=== PATIENT | male | born 1955 | race Caucasian/White ===

== ENCOUNTER → 2018-09-19 | Emergency (ER) | payer OTHER ==
[~2018-09-19] MED LIST: Aspirin 81 mg CHEW TAB* 81 MG TAB.CHEW ONE; Aspirin 81 mg CHEW TAB* 81 MG TAB.CHEW PO ONE
[2018-09-19 15:03] LABS: ABS Basophils 0.1 10^3/ul (0-0.2); ABS Eosinophils 0.4 10^3/ul (0-0.6); ABS Lymphocytes 2.5 10^3/ul (1.0-4.8); ABS Monocytes 0.9 10^3/ul (0-0.8); ABS Neutrophils 4.8 10^3/ul (1.5-7.7); ABS Nucleated RBC 0 10^3/ul; Eosinophil % 4.6 % (0-6); Hematocrit 43 % (42-52); Hemoglobin 14.7 g/dl (14.0-18.0); Lymphocyte % 28.7 % (25-47); Mean Corpuscular HGB Conc 35 g/dl (31-36); Mean Corpuscular Hemoglobin 31 pg (27-31); Mean Corpuscular Volume 88 fL (80-94); Mean Platelet Volume 7.8 um3 (7.4-10.4); Nucleated Red Blood Cells % 0.1; Platelet Count 278 10^3/ul (150-450); Red Blood Count 4.83 10^6/ul (4.00-5.40); Red Cell Distribution Width 13 % (10.5-15); White Blood Count 8.6 10^3/ul (3.5-10.8)
[2018-09-19 15:11] LABS: INR 0.91 (0.77-1.02)
[2018-09-19 15:26] LABS: EGFR Non-African American 84.1 (>60)
--- NOTE | 2018-09-19 15:46 | RAD ---
HISTORY: chest pain COMPARISONS: December 14, 2012 VIEWS: 4: Frontal dual-energy and lateral views of the chest. FINDINGS: CARDIOMEDIASTINAL SILHOUETTE: The cardiomediastinal silhouette is normal. LONNY: The lonny are normal. PLEURA: The costophrenic angles are sharp. No pleural abnormalities are noted. LUNG PARENCHYMA: There is hyperinflation with flattening of the diaphragm and expansion of the AP diameter of the chest. ABDOMEN: The upper abdomen is clear. There is no subphrenic gas. BONES AND SOFT TISSUES: Degenerative changes are noted along the spine. The patient is status post anterior cervical fusion. OTHER: None. IMPRESSION: NO ACTIVE CARDIOPULMONARY DISEASE.
--- NOTE | 2018-09-19 18:11 | ED ---
HPI Chest Pain - HPI Summary HPI Summary: This patient is a 63 year old M presenting to [facility] with a chief complaint of intermittent tight 3/10 CP radiating to throat since 3 months ago. He endorses SOB. He was referred by Dr. Alanis, from his office, where patient was experiencing the chest pain in the office, and where his D-dimer, and troponin were both negative by office labs at approximately 1315pm, and EKG was sinus rhythm and not a STEMI. Pt drove himself to the ED He notes that sx are alleviated with activity, and worse when lying flat. Pt is normally very physically active and fit. PMHx AFib with ablation, HLD (statin intolerant), HTN, GERD, hiatal hernia. He had a normal JOCE 2012, a pulmonary vein catheter ablation for afib 02/2013. Pt states that coughing alleviates his Afib sx. Pt denies Rx blood thinners. Rx Toprol, Lisinopril. Pt took 81 ASA last PM, none since. - History of Current Complaint Chief Complaint: EDChestPainROMI Time Seen by Provider: 09/19/18 14:49 Hx Obtained From: Patient, Other: - Dr. Alanis Onset/Duration: Started Weeks Ago, Still Present Timing: Intermittent Initial Severity: Mild Current Severity: Mild Pain Intensity: 3 Pain Scale Used: 0-10 Numeric Chest Pain Location: Diffuse Chest Pain Radiates: Yes Chest Pain Radiates To:: Neck Character: Tightness Aggravating Factor(s): Rest - with recumbent position Alleviating Factor(s): Other: - exertion Associated Signs and Symptoms: Positive: Chest Pain, Shortness of Breath - Allergy/Home Medications Allergies/Adverse Reactions: Allergies Allergy/AdvReac Type Severity Reaction Status Date / Time [id number] Reductase Allergy Fatigue Verified 09/19/18 14:50 Inhibitor PMH/Surg Hx/FS Hx/Imm Hx Previously Healthy: No Cardiovascular History: Reports: Hx Atrial Fibrillation - s/p ablation, Hx Hypercholesterolemia, Hx Hypertension Respiratory History: Denies: Hx Asthma GI History: Reports: Hx Gastroesophageal Reflux Disease, Hx Hiatal Hernia Musculoskeletal History: Reports: Hx Back Problems - c6-c7 disc herniation, replacement Sensory History: Reports: Hx Contacts or Glasses Opthamlomology History: Reports: Hx Contacts or Glasses Neurological History: Reports: 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 Jules ( 2004). 2006 [facility]- (left) inguinal hernia. 2010 [facility]- (right) ring finger trigger release Hx Anesthesia Reactions: No Infectious Disease History: No Infectious Disease History: Denies: Traveled Outside the [place] in Last 30 Days - Family History Known Family History: Negative: Blood Disorder - Social History Alcohol Use: Daily Hx Substance Use: No Substance Use Type: Reports: None Smoking Status (MU): Never Smoked Tobacco Have You Smoked in the Last Year: No Review of Systems Negative: Fever Positive: Chest Pain Positive: Shortness Of Breath Gastrointestinal: Negative Positive: no symptoms reported Positive: Arthralgia - neck/throat pain radiation from chest Neurological: Negative Psychological: Normal All Other Systems Reviewed And Are Negative: Yes Physical Exam - Summary Physical Exam Summary: Appearance: Well-appearing, mild pain distress, well-nourished Skin: Warm, color reflects adequate perfusion, dry Head: Normal Head/Face inspection, atraumatic Eyes: Conjunctiva clear ENT: Normal inspection Neck: Supple, no nodes, no JVD Respiratory: Lungs clear, normal breath sounds, no respiratory distress Cardio: RRR, No murmur, pulses normal, brisk capillary refill Abdomen: Soft, non-tender Bowel sounds: Present Musculoskeletal: Strength Intact/ROM intact, no calf tenderness, no edema. Psychological: Normal Neuro: Alert, muscle tone normal, no focal deficit Triage Information Reviewed: Yes Vital Signs On Initial Exam: Initial Vitals Temp Pulse Resp BP Pulse Ox 98.7 F 83 16 151/95 94 09/19/18 14:43 09/19/18 14:43 09/19/18 14:43 09/19/18 14:43 09/19/18 14:43 Vital Signs Reviewed: Yes Diagnostics - Vital Signs Vital Signs Temp Pulse Resp BP Pulse Ox 09/19/18 14:43 98.7 F 83 16 151/95 94 - Laboratory Lab Results: Lab Results 09/19/18 09/19/18 09/19/18 Range/Units 14:53 14:53 14:53 WBC 8.6 (3.5-10.8) 10^3/ul RBC 4.83 (4.00-5.40) 10^6/ul Hgb 14.7 (14.0-18.0) g/dl Hct 43 (42-52) % MCV 88 (80-94) fL MCH 31 (27-31) pg MCHC 35 (31-36) g/dl RDW 13 (10.5-15) % Plt Count 278 (150-450) 10^3/ul MPV 7.8 (7.4-10.4) um3 Neut % (Auto) 55.6 (38-83) % Lymph % (Auto) 28.7 (25-47) % [place] % (Auto) 10.5 H (0-7) % Eos % (Auto) 4.6 (0-6) % Baso % (Auto) 0.6 (0-2) % Absolute Neuts (auto) 4.8 (1.5-7.7) 10^3/ul Absolute Lymphs (auto) 2.5 (1.0-4.8) 10^3/ul Absolute Monos (auto) 0.9 H (0-0.8) 10^3/ul Absolute Eos (auto) 0.4 (0-0.6) 10^3/ul Absolute Basos (auto) 0.1 (0-0.2) 10^3/ul Absolute Nucleated RBC 0 10^3/ul Nucleated RBC % 0.1 INR (Anticoag Therapy) (0.77-1.02) APTT (26.0-36.3) seconds D-Dimer, Quantitative (Less Than 230) ng/mL Sodium 139 (135-145) mmol/L Potassium 4.0 (3.5-5.0) mmol/L Chloride 105 (101-111) mmol/L Carbon Dioxide 28 (22-32) mmol/L Anion Gap 6 (2-11) mmol/L BUN 13 (6-24) mg/dL Creatinine 0.91 (0.67-1.17) mg/dL Est GFR ( Amer) 101.8 (>60) Est GFR (Non-Af Amer) 84.1 (>60) BUN/Creatinine Ratio 14.3 (8-20) Glucose 100 (70-100) mg/dL Lactic Acid 1.1 (0.5-2.0) mmol/L Calcium 9.1 (8.6-10.3) mg/dL Magnesium 2.2 (1.9-2.7) mg/dL Total Bilirubin 0.40 (0.2-1.0) mg/dL AST 21 (13-39) U/L ALT 24 (7-52) U/L Alkaline Phosphatase 85 (34-104) U/L Total Creatine Kinase 82 (10-223) U/L CK-MB (CK-2) 2.2 (0.6-6.3) ng/mL Troponin I 0.00 (<0.04) ng/mL B-Natriuretic Peptide ( - 100) pg/mL Total Protein 7.1 (6.4-8.9) g/dL Albumin 4.1 (3.2-5.2) g/dL Globulin 3.0 (2-4) g/dL Albumin/Globulin Ratio 1.4 (1-3) TSH 3.59 (0.34-5.60) mcIU/mL Thyroxine (T4) 9.06 (6.09-12.23) mcg/mL 09/19/18 09/19/18 Range/Units 14:53 14:53 WBC (3.5-10.8) 10^3/ul RBC (4.00-5.40) 10^6/ul Hgb (14.0-18.0) g/dl Hct (42-52) % MCV (80-94) fL MCH (27-31) pg MCHC (31-36) g/dl RDW (10.5-15) % Plt Count (150-450) 10^3/ul MPV (7.4-10.4) um3 Neut % (Auto) (38-83) % Lymph % (Auto) (25-47) % [place] % (Auto) (0-7) % Eos % (Auto) (0-6) % Baso % (Auto) (0-2) % Absolute Neuts (auto) (1.5-7.7) 10^3/ul Absolute Lymphs (auto) (1.0-4.8) 10^3/ul Absolute Monos (auto) (0-0.8) 10^3/ul Absolute Eos (auto) (0-0.6) 10^3/ul Absolute Basos (auto) (0-0.2) 10^3/ul Absolute Nucleated RBC 10^3/ul Nucleated RBC % INR (Anticoag Therapy) 0.91 (0.77-1.02) APTT 32.5 (26.0-36.3) seconds D-Dimer, Quantitative < 200 (Less Than 230) ng/mL Sodium (135-145) mmol/L Potassium (3.5-5.0) mmol/L Chloride (101-111) mmol/L Carbon Dioxide (22-32) mmol/L Anion Gap (2-11) mmol/L BUN (6-24) mg/dL Creatinine (0.67-1.17) mg/dL Est GFR ( Amer) (>60) Est GFR (Non-Af Amer) (>60) BUN/Creatinine Ratio (8-20) Glucose (70-100) mg/dL Lactic Acid (0.5-2.0) mmol/L Calcium (8.6-10.3) mg/dL Magnesium (1.9-2.7) mg/dL Total Bilirubin (0.2-1.0) mg/dL AST (13-39) U/L ALT (7-52) U/L Alkaline Phosphatase (34-104) U/L Total Creatine Kinase (10-223) U/L CK-MB (CK-2) (0.6-6.3) ng/mL Troponin I (<0.04) ng/mL B-Natriuretic Peptide 27 ( - 100) pg/mL Total Protein (6.4-8.9) g/dL Albumin (3.2-5.2) g/dL Globulin (2-4) g/dL Albumin/Globulin Ratio (1-3) TSH (0.34-5.60) mcIU/mL Thyroxine (T4) (6.09-12.23) mcg/mL Result Diagrams: 09/19/18 14:53 09/19/18 14:53 Lab Statement: Any lab studies that have been ordered have been reviewed, and results considered in the medical decision making process. - Radiology CXR Radiology Interpretation Completed By: Radiologist Summary of Radiographic Findings: No active cardiopulmonary disease. Dr. Cash has reviewed this report. - EKG 145 Cardiac Rate: NL - 72 EKG Rhythm: Sinus Rhythm ST Segment: Non-Specific Ectopy: None EKG Comparison: No Significant Change - from 09/19/[address] Alanis's office. Summary of EKG Findings: nl axis, nl QTc, nl AVIVCT. Re-Evaluation - Re-Evaluation First Eval Re-Evaluation Time: 17:36 Change: Improved Comment: CP relieved after ASA to 0/10. He is aware we are awaiting 1 more troponin. Second Eval Re-Evaluation Time: 19:00 Change: Unchanged Comment: remains pain free, and agrees with discharge and close follow up for stress ECHO. Chest Pain Course/Dx - Course Course Of Treatment: A 63-year-old M presents to the ED with a CC of intermittent tight CP for 3 months. (+) SOB, pain radiation to throat. (-) fever. PMHx HLD, HTN, afib s/p ablation. Sx worsened with rest/recumbent position, and alleviated with exertion. Pt referred by Dr. Alanis for further evaluation because he was experiencing chest pain in the office, although office troponin and D-dimer were negative. A CXR was (-). An EKG reveals NSR at 72 BPM with nl QTc, nl axis, and nl AVIVCT, with no STEMI. In the ED course, pt was given 324 ASA with relief of his pain. Pt labs show high mono %, and high abs monos and pt had negative troponin x 2 in the ED, 3 hrs apart, and relief of chest pain. He also had neg d-dimer. EKG in the ED was unchanged from the EKG in Dr. Alanis's office. Pt sees Dr. Ross for cardiology, and is advised to have close follow up with Dr. Alanis and Dr. Ross for further evaluation. Dr. Ross's office left pt a message while he was in the ED, advising him to call in the am to schedule a stress ECHO. - Chest Pain Differential Diagnosis/HQI/PQRI: Acute IN, ACS, Angina, CHF, GI Disease, Pulmonary Edema, Pulmonary Embolism, Other: - afib - Diagnoses Provider Diagnoses: Chest pain, Hypertension, poor control Discharge - Sign-Out/Discharge Documenting (check all that apply): Patient Departure - discharge - Discharge Plan Condition: Stable Disposition: HOME Patient Education Materials: Chest Pain (ED) Referrals: Chris Alanis MD [Primary Care Provider] - 1 Day Harsha Ross MD [Medical Doctor] - 1 Day Additional Instructions: You had two troponin levels that were zero. Your other labs were also unremarkable. Return to the ER if you have any new or worsening symptoms. - Billing Disposition and Condition Condition: STABLE Disposition: Home - Attestation Statements Document Initiated by Leroy: Yes Documenting Scribe: Jimbo Richardson Provider For Whom Leroy is Documenting (Include Credential): Dr. Jayleen Cash MD Scribe Attestation: Jimbo Green scribed for Dr. Jayleen Cash MD on 09/24/18 at 1801. Scribe Documentation Reviewed: Yes Provider Attestation: The documentation as recorded by the Jimbo zurita accurately reflects the service I personally performed and the decisions made by me, Dr. Jayleen Cash MD
[2018-09-19 19:16] VITALS: BP 158/74
== END | disposition home or self-care (01) ==
LOC: ED 14:31
DX: R07.9 Chest pain, unspecified (principal); E78.5 Hyperlipidemia, unspecified; I10 Essential (primary) hypertension; I48.91 Unspecified atrial fibrillation; Z79.01 Long term (current) use of anticoagulants; E78.00 Pure hypercholesterolemia, unspecified; K21.9 Gastro-esophageal reflux disease without esophagitis; M50.33 Other cervical disc degeneration, cervicothoracic region
CPT/HCPCS: 36415; 71046; 80053; 82550; 82553; 83605; 83735; 83880; 84436; 84443; 84484; 85025; 85379; 85610; 85730; 93005; 99282; A9270-GY

== ENCOUNTER 2019-03-24 19:27 | Observation (INO) | payer OTHER ==
--- OUTSIDE RECORDS SUMMARY | 2019-03-24 19:51 | XMS REPORT | Continuity of Care Document ---
:1955 External Reference #:[id number] Author Name [facility] Care Team Providers Name Role Phone Chris Alanis MD Care Team Information Car Conditioner Unavailable Chris Alanis MD Primary Care Physician Unavailable Payers Date Identification Numbers Payment Provider Subscriber Policy Number: [id number] [facility] Steve Maria PayID: [id number] [id number] [place] [address] Advance Directives Description No Information Available Problems Date Description Provider Status Onset: 08/28/2013 Atrial fibrillation Harsha Ross M.D. Active Onset: 08/28/2013 Essential hypertension Harsha Ross M.D. Active Family History Date Family Member(s) Observation Comments General Heart Disease Social History Type Date Description Comments Sex Unknown Marital Status Lives With Spouse Occupation Retired [employer] Tobacco Use Start: Unknown Never Smoked Cigarettes Smoking Status Reviewed: 03/01/19 Never Smoked Cigarettes ETOH Use consumes 2-3 beers per day Tobacco Use Start: Unknown Patient has never smoked Recreational Drug Use Denies Drug Use Exercise Type/Frequency Exercises regularly Allergies, Adverse Reactions, Alerts Description No Known Drug Allergies Medications Medication Date Status Form Strength Qnty SIG Indications Ordering Provider Lisinopril Active Tablets 10mg 90tabs 1 by Harsha Aguero 018 mouth Brand, every day M.DShawn Nexium Active Capsules 40mg 90caps 1 po qd Harsha Aguero 013 DR Cody M.D. Metoprolol Active Tablets ER 25mg 90tabs 1 by Harsha Aguero Succinate ER 013 24HR mouth Brand, every day M.DShawn Calcium Active once Unknown 000 daily Vitamin D Active Daily Unknown 000 Proair HFA Active Aerosol 108(90Base 2 puffs Unknown 000 ) mcg/Act by mouth every 4 hours as needed Flovent HFA Active Aerosol 110mcg/Act prn when Unknown 000 working out [place] Hx Tablets 5-325mg 15tabs 1-2 by Nataliia 014 - mouth Bullock-You every 4 ng, MShawnDShawn 015 hours as needed pain Flecainide Hx Tablets 100mg 180tab 1 po bid Harsha Aguero Acetate 013 - s Brand, M.DShawn 014 Flecainide Hx Tablets 50mg 60tabs 1 po bid Harsha Aguero Acetate 013 - Brand, M.DShawn 013 Lisinopril Hx Tablets 5mg 90tabs 1 by Harsha Aguero 013 - mouth Brand, every day M.More 018 Toprol XL Hx Tablets ER 25mg 90tabs 1 po qd Unknown 000 - 24HR 013 Xarelto Hx Tablets 20mg 30tabs 1 po qd Unknown 000 - 013 Amoxicillin Hx Unknown 000 - 014 Medications Administered in Office Medication Date Status Form Strength Qnty SIG Indications Ordering Provider Celestone 3 Administered Injection Nataliia mg and 3mg 014 [place] Celestone 3 Administered Injection Adventism H. mg and 3mg 012 PAKO Hidalgo Celestone 3 Administered Injection Nataliia mg and 3mg 012 [place] Celestone 3 Administered Injection Nataliia mg and 3mg 011 [place] Celestone 3 Administered Injection Nataliia mg and 3mg 011 [place] Immunizations Description No Information Available Vital Signs Date Vital Result Comment 03/01/2019 11:37am Height 72 inches 6'0" Weight 215.00 lb without shoes Heart Rate 66 /min BP Systolic Sitting 150 mmHg Lue reg cuff BP Diastolic Sitting 100 mmHg Lue reg cuff BP Systolic Standing 152 mmHg Lue reg cuff BP Diastolic Standing 100 mmHg Lue reg cuff Respiratory Rate 16 /min BMI (Body Mass Index) 29.2 kg/m2 01/24/2018 9:31am Height 72 inches 6'0" Weight 218.00 lb without shoes Heart Rate 86 /min BP Systolic Sitting 148 mmHg Rue lg cuff BP Diastolic Sitting 90 mmHg Rue lg cuff BP Systolic Standing 150 mmHg Rue lg cuff BP Diastolic Standing 90 mmHg Rue lg cuff Respiratory Rate 16 /min BMI (Body Mass Index) 29.6 kg/m2 12/21/2016 11:22am Height 72 inches 6'0" Weight 208.00 lb w/o shoes Heart Rate 72 /min reg BP Systolic Sitting 144 mmHg Rue, reg cuff BP Diastolic Sitting 90 mmHg Rue, reg cuff BP Systolic Standing 140 mmHg Rue BP Diastolic Standing 96 mmHg Rue Respiratory Rate 16 /min BMI (Body Mass Index) 28.2 kg/m2 11/06/2015 3:18pm Height 72 inches 6'0" Weight 211.00 lb w/o shoes Heart Rate 84 /min reg BP Systolic Sitting 130 mmHg Rue, reg cuff BP Diastolic Sitting 90 mmHg Rue, reg cuff BP Systolic Standing 130 mmHg Rue BP Diastolic Standing 94 mmHg Rue Respiratory Rate 18 /min BMI (Body Mass Index) 28.6 kg/m2 10/08/2014 8:00am Height 72 inches 6'0" Weight 214.00 lb Body Temperature 97.7 F BMI (Body Mass Index) 29.0 kg/m2 09/15/2014 8:02am Height 72 inches 6'0" Weight 214.00 lb Body Temperature 97.9 F BMI (Body Mass Index) 29.0 kg/m2 08/27/2014 8:37am Height 72 inches 6'0" Weight 215.00 lb Heart Rate 74 /min BP Systolic 148 mmHg BP Diastolic 93 mmHg BMI (Body Mass Index) 29.2 kg/m2 04/09/2014 8:21am Height 72 inches 6'0" Weight 216.00 lb Heart Rate 72 /min BP Systolic 136 mmHg BP Diastolic 91 mmHg BMI (Body Mass Index) 29.3 kg/m2 03/14/2014 3:28pm Height 72 inches 6'0" Weight 216.00 lb with shoes Heart Rate 66 /min BP Systolic Sitting 140 mmHg Ra reg cuff BP Diastolic Sitting 88 mmHg Ra reg cuff BP Systolic Standing 150 mmHg Ra reg cuff BP Diastolic Standing 98 mmHg Ra reg cuff Respiratory Rate 16 /min BMI (Body Mass Index) 29.3 kg/m2 01/06/2014 8:05am Height 72 inches 6'0" Weight 208.00 lb Heart Rate 81 /min BP Systolic 139 mmHg BP Diastolic 83 mmHg BMI (Body Mass Index) 28.2 kg/m2 08/28/2013 3:33pm Height 71 inches 5'11" Weight 211.00 lb without shoes Heart Rate 7678 /min sit and stand HR reg BP Systolic Sitting 120 mmHg L arm reg cuff BP Diastolic Sitting 90 mmHg L arm reg cuff BP Systolic Standing 138 mmHg L arm reg cuff BP Diastolic Standing 100 mmHg L arm reg cuff Respiratory Rate 17 /min BMI (Body Mass Index) 29.4 kg/m2 08/29/2011 3:55pm Height 72 inches 6'0" Weight 200.00 lb Heart Rate 80 /min BP Systolic 135 mmHg BP Diastolic 87 mmHg BMI (Body Mass Index) 27.1 kg/m2 Results Test Date Facility Test Result H/L Range Note Comp Metabolic Panel 01/23/2019 [facility] Sodium 140 mmol/L N 135-[address] [place] [address] [phone] Potassium 4.1 mmol/L N 3.5-5.0 Chloride 106 mmol/L N 101-111 Co2 Carbon Dioxide 28 mmol/L N 22-32 Anion Gap 6 mmol/L N 2-11 Glucose 104 mg/dL High 70-100 Blood Urea Nitrogen 15 mg/dL N 6-24 Creatinine 0.87 mg/dL N 0.67-1.17 BUN/Creatinine Ratio 17.2 N 8-20 Calcium 9.2 mg/dL N 8.6-10.3 Total Protein 7.2 g/dL N 6.4-8.9 Albumin 4.4 g/dL N 3.2-5.2 Globulin 2.8 g/dL N 2-4 Albumin/Globulin Ratio 1.6 N 1-3 Total Bilirubin 0.80 mg/dL N 0.2-1.0 Alkaline Phosphatase 94 U/L N 34-104 Alt 35 U/L N 7-52 Ast 25 U/L N 13-39 Egfr Non- 88.6 >60 Egfr 107.2 >60 1 Lipid Profile 01/23/2019 [facility] Triglycerides 86 mg/dL 2 (Trig/Chol/HDL) [address] [place] [address] [phone] Cholesterol 221 mg/dL 3 HDL Cholesterol 48.8 mg/dL 4 LDL Cholesterol 155 mg/dL 5 Laboratory test 01/23/2019 [facility] Creatine 98 U/L N 10- [address] [facility] [place] [address] [phone] Lipid Panel - JF 12/24/2018 [facility] Creatine <pending> [address] [facility] [place] [address] [phone] 1 Because ethnic data is not always readily available, this report includes an eGFR for both -Americans and non- Americans. The National Kidney Disease Education Program (NKDEP) does not endorse the use of the MDRD equation for patients that are not between the ages of 18 and 70, are , have extremes of body size, muscle mass, or nutritional status, or are non- or non-. According to the National Kidney Foundation, irrespective of diagnosis, the stage of the disease is based on the level of kidney function: Stage Description GFR(mL/min/1.73 m(2)) 1 Kidney damage with normal or decreased GFR 90 2 Kidney damage with mild decrease in GFR 60-89 3 Moderate decrease in GFR 30-59 4 Severe decrease in GFR 15-29 5 Kidney failure <15 (or dialysis) 2 Desirable: <150 Borderline High: 150-199 High: 200-499 Very High: >500 3 Desirable: <200 Borderline High: 200-239 High: >239 4 Low: <40 Desirable: 40-60 High: >60 5 Desirable: <100 Near Optimal: 100-129 Borderline High: 130-159 High: 160-189 Very High: >189 Procedures Date Code Description Status 03/01/2019 17334 EKG Tracing & Interpretation Completed 09/21/2018 93237 ECHO Stress Test Incl Perf Contiuous ekg Monitoring W/Phys Completed Superv 01/24/2018 06176 EKG Tracing & Interpretation Completed 12/21/2016 53199 EKG Tracing & Interpretation Completed 11/06/2015 46247 EKG Tracing & Interpretation Completed 09/04/2014 63932 Trigger Finger Release Incision / Tendon Sheath Incision Completed 09/04/2014 80808 Trigger Finger Release Incision / Tendon Sheath Incision Completed 03/14/2014 00044 EKG Tracing & Interpretation Completed 01/06/2014 38371 Inject Tendon Sheath Or Ligament Aponeurosis Eg Plantar Completed Fascia 03/29/2013 47043 EKG Tracing & Interpretation Completed 02/11/2013 10338 Polysomnography Sleep Staging 4+ Parameters W/Cpap Completed 01/14/2013 62091 EKG Tracing & Interpretation Completed 01/06/2013 68260 Polysomnography Sleep Staging 4+ Parameters Completed 12/26/2012 16469 EKG Tracing & Interpretation Completed 12/21/2012 61822 EKG Tracing & Interpretation Completed 12/14/2012 52192 Cardioversion Completed 11/30/2012 11556 Color Flow Doppler/Interp & Reprt Completed 11/30/2012 61282 Pulse Wave/Continuous-Interp.RPT Completed 11/30/2012 45590 Echocardiography, Transesophageal, Real Time W/Image 2D Completed W/W/O M-M 11/30/2012 15802 EKG, Interpretation Only Completed 11/30/2012 08248 Cardioversion Completed 12/28/2011 23430 Inject Tendon Sheath Or Ligament Aponeurosis Eg Plantar Completed Fascia 11/23/2011 91702 Injection Single Tendon Origin/Insertion Completed 11/23/2011 44141 Inject Tendon Sheath Or Ligament Aponeurosis Eg Plantar Completed Fascia 11/16/2011 93001 Trigger Finger Release Incision / Tendon Sheath Incision Completed 11/16/2011 33017 Trigger Finger Release Incision / Tendon Sheath Incision Completed 09/19/2011 48849 Inject Tendon Sheath Or Ligament Aponeurosis Eg Plantar Completed Fascia 08/29/2011 45219 Inject Tendon Sheath Or Ligament Aponeurosis Eg Plantar Completed Fascia Encounters Type Date Location Provider Dx Diagnosis Office Visit 01/24/2018 [facility] Harsha Aguero I48.0 Paroxysmal atrial 9:30a Of Frank Ross M.D. fibrillation I10 Essential (primary) hypertension Office Visit 12/21/2016 11:30a [facility] Harsha Aguero I48.0 Paroxysmal atrial Of Frank Ross M.D. fibrillation I10 Essential (primary) hypertension Office Visit 11/06/2015 3:15p Rachael Aguero I48.0 Paroxysmal atrial Cardiology Of [place] Ross fibrillation Regulatory Affairs Assistant Office Visit 04/09/2014 8:00a [facility] 727.03 Trigger Finger Services Of [facility] [facility] C.M.A., M.D. Office Visit 03/14/2014 3:15p Rachael Aguero 427.31 Atrial [facility]iology Of [facility] Fibrillation [facility] 401.9 Hypertension Unspec Office Visit 01/06/2014 [facility] Nataliia 727.03 Trigger Finger 8:15a Services Of [place] C.M.A. Office Visit 08/28/2013 Rachael Ross 427.31 Atrial 3:15p Cardiology Of [facility] Fibrillation [facility] 401.9 Hypertension Unspec Office Visit 03/29/2013 3:30p Rachael Aguero 427.31 Atrial Fibrillation Cardiology Of Og Ross [facility] Office Visit 01/16/2013 11:59a [facility] [place] 327.23 Obstructive Sleep Disorder Center Chemo Apnea Adult & Og Pediatric Office Visit 01/14/2013 3:15p Rachael Aguero 427.31 Atrial Fibrillation [facility]iology Of [facility] Ross Cma AT [facility] Office Visit 12/26/2012 3:30p Rachael Aguero 427.31 Atrial Fibrillation Cardiology Of [facility] Office Visit 12/26/2012 3:00p [facility] [place] 786.09 Dyspnea & Disorder Center Chemo Respiratory Og Abnormalities Other 427.31 Atrial Fibrillation Office Visit 12/21/2012 1:00p Rachael Aguero 427.31 Atrial Of Frank Ross M.D. Fibrillation Office Visit 12/14/2012 12:03p [facility] Najma Caicedo 427.31 Atrial Of Frank Foley Fibrillation 427.81 Sinoatrial Node Dysfunction Office Visit 12/01/2012 11:24a [place] Shayy Johnson 427.31 Atrial Assoc,[facility] Fibrillation Hospitalists 401.9 Hypertension Unspec 530.81 Esophageal Reflux Office Visit 11/30/2012 11:33a Rachael Caicedo 427.31 Atrial Cardiology Of M.DShawn Fibrillation [facility] 427.31 Atrial Fibrillation 786.50 Pain Chest Unspec 786.05 Shortness Of Breath 785.1 Palpitations Office Visit 11/30/2012 [facility] 427.31 Atrial 11:24a Assoc,jose Anaya N.P. Fibrillation Hospitalists 401.9 Hypertension Unspec 530.81 Esophageal Reflux Office Visit 11/29/2012 [facility] 427.31 Atrial 11:23a Assoc,jose Pillai M.D. Fibrillation Hospital[facility] 401.9 Hypertension Unspec 530.81 Esophageal Reflux Office Visit 09/19/2011 [facility] Nataliia 727.03 Trigger Finger 4:15p Services Of [place] C.M.A. Office Visit 08/29/2011 [facility] Nataliia 727.03 Trigger Finger 3:30p Services Of [facility] [place] Acquired C.M.A. Plan of Treatment 03/01/2019 - Harsha Ross M.D.I48.0 Paroxysmal atrial [id number] Essential (primary) hypertensionFollow up:1 yearRecommendations:get blood pressure cuff at home to check BP's at home
--- NOTE | 2019-03-24 20:20 | ED ---
Palpitations / Dysrhythmia - HPI Summary HPI Summary: This patient is a 63 year old female presenting to [facility] with a chief complaint of dysrhythmia/palpitations. The patient was camping last night when he experienced frequent urination after drinking one beer. He woke up this morning with palpitations which intermittently got better or worse. The patient reports pallor, shortness of breath and chest tightness. He denies diaphoresis. The patient says 7 hours after it started and his rhythm returned to normal and the palpitations resolved. Patient has a Hx of AFib and ablation to treat the AFib. The patient denies N/V/D. Vital signs in room: Blood pressure is 167/99. HR 89 bpm. - History of Current Complaint Chief Complaint: EDDysrhythmPalp Time Seen by Provider: 03/24/19 20:13 Hx Obtained From: Patient Timing: Intermittent Episodes Lasting: Severity Initially: Moderate Severity Currently: None Character: Fast, Irregular Alleviating: Rest - Risk Factors Cardiac: Hypertension, Elevated Lipids - Allergy/Home Medications Allergies/Adverse Reactions: Allergies Allergy/AdvReac Type Severity Reaction Status Date / Time Zctpltb-Xye-Ono Reductase Allergy Fatigue Verified 03/24/19 19:32 Inhibitor Home Medications: Home Medications Aspirin Childrens 81 MG 81 mg PO DAILY 03/24/19 [History Confirmed 03/24/19] PMH/Surg Hx/FS Hx/Imm Hx Endocrine/Hematology History: Reports: Hx Anticoagulant Therapy - COUMADIN Cardiovascular History: Reports: Hx Atrial Fibrillation - s/p ablation, Hx Hypercholesterolemia, Hx Hypertension Respiratory History: Denies: Hx Asthma GI History: Reports: Hx Gastroesophageal Reflux Disease, Hx Hiatal Hernia Musculoskeletal History: Reports: Hx Back Problems - c6-c7 disc herniation, replacement Sensory History: Reports: Hx Contacts or Glasses Opthamlomology History: Reports: Hx Contacts or Glasses Neurological History: Reports: 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 Jules ( 2004). 2006 [facility]- (left) inguinal hernia. 2010 [facility]- (right) ring finger trigger release Hx Anesthesia Reactions: No Infectious Disease History: No Infectious Disease History: Denies: Traveled Outside the [place] in Last 30 Days - Family History Known Family History: Negative: Blood Disorder - Social History Alcohol Use: Daily Hx Substance Use: No Substance Use Type: Reports: None Smoking Status (MU): Never Smoked Tobacco Have You Smoked in the Last Year: No Review of Systems Negative: Skin Diaphoresis Positive: Palpitations, Chest Pain - Tightness Positive: Shortness Of Breath Negative: Vomiting, Diarrhea, Nausea Positive: frequency All Other Systems Reviewed And Are Negative: Yes Physical Exam - Summary Physical Exam Summary: VITAL SIGNS: Reviewed. GENERAL: Patient is a well-developed and nourished MALE who is lying comfortable in the stretcher. Patient is not in any acute respiratory distress. HEAD AND FACE: No signs of trauma. No ecchymosis, hematomas or skull depressions. No sinus tenderness. EYES: PERRLA, EOMI x 2, No injected conjunctiva, no nystagmus. EARS: Hearing grossly intact. Ear canals and tympanic membranes are within normal limits. MOUTH: Oropharynx within normal limits. NECK: Supple, trachea is midline, no adenopathy, no JVD, no carotid bruit, no c- spine tenderness, neck with full ROM. CHEST: Symmetric, no tenderness at palpation LUNGS: Clear to auscultation bilaterally. No wheezing or crackles. CVS: Regular rate and rhythm, S1 and S2 present, no murmurs or gallops appreciated. ABDOMEN: Soft, non-tender. No signs of distention. No rebound no guarding, and no masses palpated. Bowel sounds are normal. EXTREMITIES: FROM in all major joints, no edema, no cyanosis or clubbing. NEURO: Alert and oriented x 3. No acute neurological deficits. Speech is normal and follows commands. SKIN: Dry and warm Triage Information Reviewed: Yes Vital Signs On Initial Exam: Initial Vitals Temp Pulse Resp BP Pulse Ox 97.8 F 94 16 149/100 96 03/24/19 19:30 03/24/19 19:30 03/24/19 19:30 03/24/19 19:30 03/24/19 19:30 Vital Signs Reviewed: Yes Diagnostics - Vital Signs Vital Signs Temp Pulse Resp BP Pulse Ox 03/24/19 20:12 89 25 167/99 98 03/24/19 20:10 88 97 03/24/19 19:30 97.8 F 94 16 149/100 96 - Laboratory Result Diagrams: 03/24/19 20:40 03/24/19 20:40 Lab Statement: Any lab studies that have been ordered have been reviewed, and results considered in the medical decision making process. - Radiology CXR Radiology Interpretation Completed By: ED Physician Summary of Radiographic Findings: No acute pathology. Pending offical radiologist report. - EKG 1939 Cardiac Rate: NL - 90 BPM EKG Rhythm: Sinus Rhythm ST Segment: Non-Specific Ectopy: None Summary of EKG Findings: No ST-elevations. T-wave inversion in III and aVF. Course/Dx - Course Assessment/Plan: This patient is a 63-year-old male with past medical history of paroxysmal atrial fibrillation is status post cardiac ablation, sleep apnea, hypertension, dyslipidemia, hiatal hernia, GERD, chronic back pain, presents to the emergency department with chief complaint of having an episode of atrial fibrillation with RVR since 5 in the morning today. The patient was camping and he felt these palpitations, shortness of breath, dizziness, and chest pressure. He reports that he was ablated by EMS for the patient had converted into a normal sinus rhythm therefore the left him come to the hospital by himself. At arrival to the emergency department the patient is alert and oriented 3 and has no complaints whatsoever. In the ED course, he was placed in a quality assurance monitor body, EKG was obtained which shows a normal sinus rhythm without any ST elevations. We gave him IV fluids for hydration and we ordered blood work. Blood test results without any significant abnormality except for potassium level of 2.4, creatinine is 05, CK-MB is 7, troponin 0.04, BNP is 113. Urinalysis negative for UTI. Chest x-ray shows no acute pathology. EKG is a normal sinus rhythm without ST elevation. I discussed the case with Dr. Crespo for admission however, she recommends to give the patient and choice of getting a second troponin and if increases the patient will be admitted or if he stays the same the patient can be discharged home with follow-up with Dr. Ross and Dr. Alanis. I discussed my physical exam and findings with the patient and he chooses to get a second troponin any fizzing his he will accept to be admitted. Otherwise he would like to go home. Physical troponin will be done 11:30 PM. Therefore, the patient will be signed out to Dr. Camarillo at shift change. - Diagnoses Provider Diagnoses: Paroxysmal A-fib, Chest pain Discharge - Sign-Out/Discharge Documenting (check all that apply): Sign-Out Patient Signing out patient TO: Davi Camarillo - At shift change 2200, 03/24/19 - Discharge Plan Condition: Good Disposition: ADMITTED TO [facility] - Billing Disposition and Condition Condition: GOOD Disposition: Admitted to [facility] - Attestation Statements Document Initiated by Scribe: Yes Documenting Scribe: Clarence Hinson Provider For Whom Scribe is Documenting (Include Credential): Oli Rodriguez MD Scribe Attestation: Clarence Green scribed for Oli Rodriguez MD on 03/25/19 at 2142. Scribe Documentation Reviewed: Yes Provider Attestation: The documentation as recorded by the Clarence zurita accurately reflects the service I personally performed and the decisions made by Oli garcia MD Status of Scribe Document: Viewed
[2019-03-24] MEDS ORDERED: NS 0.9% 1000 ML** 1,000 ML IV ONE (20:29)
[2019-03-24 20:41] LABS: Urine Appearance Clear; Urine Bilirubin Negative (Negative); Urine Blood Negative (Negative); Urine Color Straw; Urine Glucose Negative (Negative); Urine Ketones Trace (Negative); Urine Nitrite Negative (Negative); Urine Protein Negative (Negative); Urine Specific Gravity 1.004 (1.010-1.030); Urine Urobilinogen Negative (Negative)
[2019-03-24 20:56] LABS: ABS Eosinophils 0.1 10^3/ul (0-0.6); ABS Lymphocytes 2.6 10^3/ul (1.0-4.8); ABS Monocytes 0.9 10^3/ul (0-0.8); ABS Neutrophils 4.8 10^3/ul (1.5-7.7); Eosinophil % 1.5 %; Hematocrit 43 % (42-52); Hemoglobin 14.8 g/dL (14.0-18.0); Lymphocyte % 30.8 %; Mean Corpuscular HGB Conc 34 g/dL (31-36); Mean Corpuscular Hemoglobin 30 pg (27-31); Mean Corpuscular Volume 89 fL (80-94); Mean Platelet Volume 7.7 fL (7.4-10.4); Nucleated Red Blood Cells % 0.1; Platelet Count 283 10^3/uL (150-450); Red Cell Distribution Width 13 % (10.5-15); White Blood Count 8.5 10^3/uL (3.5-10.8)
[2019-03-24 21:09] LABS: ALT 21 U/L (7-52); AST 24 U/L (13-39); Albumin 4.2 g/dL (3.2-5.2); Albumin/Globulin Ratio 1.5 (1-3); Alkaline Phosphatase 83 U/L (34-104); Anion Gap 10 mmol/L (2-11); BUN/Creatinine Ratio 14.9 (8-20); Blood Urea Nitrogen 15 mg/dL (6-24); CO2 Carbon Dioxide 24 mmol/L (22-32); Calcium 9.2 mg/dL (8.6-10.3); Chloride 105 mmol/L (101-111); Creatine Kinase 305 U/L (10-223); EGFR African American 90.3 (>60); EGFR Non-African American 74.6 (>60); Globulin 2.8 g/dL (2-4); Glucose 94 mg/dL (70-100); Potassium 3.4 mmol/L (3.5-5.0); Sodium 139 mmol/L (135-145)
[2019-03-24 21:13] LABS: Troponin I 0.04 ng/mL (<0.04)
[2019-03-24 21:41] LABS: TSH (Thyroid Stimulating Horm) 5.34 mcIU/mL (0.34-5.60)
--- NOTE | 2019-03-24 22:32 | ED ---
Progress - Progress Note Progress Note: The patient is a sign-out from Dr. Oli Rodriguez MD, to Dr. Davi Camarillo MD at change of shift at 2200 pending second troponin and disposition. The patient's second troponin is slightly elevated. He reports his a-fib lasted 6 hours this morning. At 0041, discussed patient case with Dr. Crespo, hospitalist who accepted the patient for admission to [facility]. Patient will be admitted with dx of paroxysmal a- fib and chest pain. Re-Evaluation - Re-Evaluation First Eval Re-Evaluation Time: 00:42 Comment: Discussed results with patient. Patient will be admitted to [facility] with dx of paroxysmal a-fib and chest pain. Patient understands and agrees with this plan. Course/Dx - Course Course Of Treatment: The patient is a sign-out from Dr. Oli Rodriguez MD, to Dr. Davi Camarillo MD at change of shift at 2200 pending second troponin and disposition. The patient's second troponin is slightly elevated. He reports his a-fib lasted 6 hours this morning. At 0041, discussed patient case with Dr. Crespo, hospitalist who accepted the patient for admission to [facility]. Patient will be admitted with dx of paroxysmal a-fib and chest pain. - Diagnoses Provider Diagnoses: Paroxysmal A-fib, Chest pain - Provider Notifications Discussed Care Of Patient With: Letitia Crespo Time Discussed With Above Provider: 00:41 Instructed by Provider To: Other - Discussed patient's case with Dr. Crespo, hospitalist, who accepted the patient for admission to [facility]. Discharge - Sign-Out/Discharge Documenting (check all that apply): Patient Departure - Admit, Receiving Sign- Out Receiving patient FROM: Oli Rodriguez Patient Received Moderate/Deep Sedation with Procedure: No - Discharge Plan Condition: Stable Disposition: ADMITTED TO [facility] - Billing Disposition and Condition Condition: STABLE Disposition: Admitted to [facility] - Attestation Statements Document Initiated by Leroy: Yes Documenting Scribe: Deangelo Hammonds Provider For Whom Leroy is Documenting (Include Credential): Davi Camarillo MD Scribe Attestation: Deangelo Green, scribed for Davi Camarillo MD on 03/25/19 at 0550. Scribe Documentation Reviewed: Yes Provider Attestation: The documentation as recorded by the Deangelo zurita Hammonds accurately reflects the service I personally performed and the decisions made by me, Davi Camarillo MD Status of Scribe Document: Viewed
[2019-03-25 00:17] LABS: Troponin I 0.05 ng/mL (<0.04)
[2019-03-25] MEDS ORDERED: Enoxaparin(*) 100 MG/ML SYR SUBCUT ONE (00:47)
[2019-03-25] MEDS ORDERED: Potassium Chlor TAB* 20 MEQ TAB.ER PO ONE (01:22)
[2019-03-25] MEDS ORDERED: Metoprolol Succinate XL TAB* 25 MG PO SCH ×2 (02:00→09:00)
[2019-03-25 02:41] LABS: Troponin I 0.04 ng/mL (<0.04)
[2019-03-25] MEDS: KCL 10 MEQ/50 ML IVPREMIX* 10 MEQ/50 ML BAG IV SCH ×3 (02:42→04:26)
[2019-03-25 08:10] LABS: Troponin I 0.04 ng/mL (<0.04)
[2019-03-25] MEDS ORDERED: Perflutren Lipid Microsphere* 3 ML VIAL ONE (08:26)
[2019-03-25] MEDS ORDERED: Aspirin 81 mg CHEW TAB* 81 MG TAB.CHEW PO SCH (09:00)
[2019-03-25] MEDS ORDERED: Pantoprazole TAB * 40 MG TAB PO SCH (09:00)
[2019-03-25] MEDS ORDERED: Lisinopril TAB* 10 MG PO SCH (09:00)
[2019-03-25 10:50] LABS: Troponin I 0.05 ng/mL (<0.04)
[2019-03-25 11:03] VITALS: BP 126/77
--- NOTE | 2019-03-25 13:23 | ECHO ---
*[facility]* [place] [address] Fax #: [phone] Transthoracic Echocardiogram Patient: Crow, Height: 72 in / Steve Carter 182.9 cm : 1955 Weight: 213.6 lb / Study Date: 03/25/2019 97.1 kg Age: 63 BP: 122 / 79 Gender: M BMI/BSA: 29 kg/m^2 / HR: 70 bpm 2.19 m^2 *Ceiling Cleaner: * Rhonda Reece RDCS RN *Referring Physician: * Letitia DickersonReading Physician: * Harsha Ross MD Indications: Atrial Fibrillation. History: Atrial fibrillation. Risk factors: Hypertension. Dyslipidemia. Conclusions Summary: 1. Left ventricle: Systolic function is normal. The estimated ejection fraction is 55-60%. There are no regional wall motion abnormalities. 2. Mitral valve: There is trace to mild regurgitation. 3. Aortic valve: There is no regurgitation. 4. Tricuspid valve: There is trivial regurgitation. The PAP was unable to be estimated. 5. Impressions: Unchanged from the study of 11/29/2012. Study data: Transthoracic echocardiogram. Procedure: Transthoracic echocardiography was performed. Image quality was fair. The study was technically limited due to body habitus. A total of 3 ml of diluted Definity was given IV by Madhuri Reece RN, [facility] for image enhancement. Complete 2D, spectral Doppler, and color flow Doppler. Patient status: Inpatient. Patient room number: 446-02. Rhythm: Normal sinus rhythm with PAC's. Findings Left ventricle: The cavity size is normal. Wall thickness is normal. Systolic function is normal. The estimated ejection fraction is 55-60%. There are no regional wall motion abnormalities. Left ventricular diastolic function parameters are normal. Right ventricle: The cavity size is normal. Systolic function is normal. Left atrium: The atrium is normal in size. Right atrium: The atrium is normal in size. Mitral valve: The leaflets are mildly thickened. There is no evidence of stenosis. There is trace to mild regurgitation. The peak diastolic gradient is 2.3 mm Hg. Aortic valve: The leaflets are mildly thickened. There is no evidence of stenosis. There is no regurgitation. The LVOT to aortic valve VTI ratio is 0.86. The ratio of LVOT to aortic valve peak velocity is 0.82. The ratio of LVOT to aortic valve mean velocity is 0.86. The mean systolic gradient is 3.0 mm Hg. Tricuspid valve: The valve is structurally normal. There is no evidence of stenosis. There is trivial regurgitation. The PAP was unable to be estimated. Pulmonic valve: The valve is structurally normal. There is no evidence of stenosis. There is trivial regurgitation. The peak systolic gradient is 3.0 mm Hg. Aorta: Aortic root: The aortic root is not dilated. Ascending aorta: The ascending aorta is not dilated. Aortic arch: The aortic arch is not dilated. Pericardium: There is no pericardial effusion. Pulmonary arteries: Not well visualized. Systemic veins: Not well visualized. Inferior vena cava: The vessel is mildly dilated. The respirophasic diameter changes are in the normal range (>= 50%). Measurements Left ventricle Value Ref Right atrium Value Ref JAIRON, LAX 4.7 cm 4.2 - 5.8 ML dim, ES, A4C 3.7 cm 2.6 - ESD, LAX 3.6 cm 2.5 - 4.0 4.4 FS, LAX (L) 23 % 25 - 43 SI dim, ES, A4C 5.0 cm 3.4 - PW, ED, LAX 1.0 cm 0.6 - 1.0 5.3 FS (L) 23 % 25 - 43 IVS/PW, ED 1.01 Aortic valve Value Ref E', lat chapo, TDI 10.7 cm/sec >=10.0 Chapo diam, ED 2.1 cm ------- E/e', lat chapo, 7 Chapo diam/bsa, ED 1.0 cm/m^2 --- ---- TDI Peak v, S 1.3 m/sec ------- E', med chapo, TDI 7.7 cm/sec >=7.0 Mean v, S 0.91 m/sec ------- E/e', med chapo, 10 VTI, S 24.6 cm --- ---- TDI Mean grad, S 3.0 mm Hg ------- E', avg, TDI 9.2 cm/sec LVOT/AV, Vpeak 0.82 --- ---- E/e', avg, TDI 8 <=14 ratio LVOT Value Ref Mitral valve Value Ref Peak harvey, S 1.06 m/sec Peak E 0.76 m/sec ------- Mean harvey, S 0.78 m/sec Peak A 0.64 m/sec ------- VTI, S 21.2 cm Decel time 222 ms ------- Mean grad, S 3 mm Hg Peak grad, D 2.3 mm Hg ------- Peak E/A ratio 1.2 ------- Ventricular septum Value Ref IVS, ED, LAX 1.0 cm 0.6 - 1.0 Aortic root Value Ref Root diam 3.4 cm <4.3 Right ventricle Value Ref JAIRON, LAX 3.8 cm Ascending aorta Value Ref JAIRON minor ax, (H) 3.9 cm 1.9 - 3.5 AAo AP diam, S 3.3 cm ------- A4C mid Aortic arch Value Ref Left atrium Value Ref Arch diam 2.8 cm ------- AP dim, ES 3.30 cm 3.00 - 4.00 Decending aorta Value Ref ML dim, A4C 4.0 cm Logan peak harvey 0.74 m/sec ------- SI dim, A4C 4.9 cm Vol/bsa, ES, 1-p 17 ml/m^2 12 - 37 Inferior vena cava Value Ref A4C Diam 2.2 cm ------- Vol/bsa, ES, 1-p 29 ml/m^2 11 - 43 A2C Vol/bsa, ES, A/L 26 ml/m^2 16 - 34 Legend: (L) and (H) claudy values outside specified reference range. Prepared and electronically signed by Harsha Ross MD 03/25/2019 13:23
--- NOTE | 2019-03-25 13:30 | HP ---
CC: Dr. Alanis; Dr. Ross * HISTORY AND PHYSICAL: DATE OF ADMISSION: 03/25/19 TIME OF EVALUATION: 1:15 a.m. PRIMARY CARE PROVIDER: Dr. Alanis. INSURANCE AGENCY MANAGER: Dr. Ross. CHIEF COMPLAINT: "I was in AFib." HISTORY OF PRESENT ILLNESS: Mr. Maria is a 63-year-old male with a past medical history of hypertension and paroxysmal atrial fibrillation, who presents to the emergency room with complaints of palpitations. The patient states he was in his usual state of health until he went camping in the [facility] on 03/22/19. He states that he went with his son to an isolated location and he had to hike carrying their boat and this was very taxing exertion. He states that he had 2 beers on the first day and around 5 a.m. he woke up with his heart pounding and he knew he was in AFib. He had some chest pressure, some shortness of breath, and he states that he was trying to grab all his belongings, but every time he tried to do something he would feel lightheaded, he would have "tunnel vision" and he had to lie down to rest more. About 7 hours later, the patient felt he converted back to sinus rhythm and at that point he was able to seek medical attention and the parking meter mechanic called EMS. Per his report, at that time he was feeling better, he was told that he was not in atrial fibrillation anymore, so he decided to drive all the way back to [place] and came to our emergency room. As he had borderline troponin elevation in the emergency room, the hospitalist service was called for evaluation. Of note is the fact that the patient states he did not drink a lot of water despite significant physical exertion. He woke up in the middle of the night and could not find his water bottle and states he was "parched." He states that he had 2 beers a day while he was camping. PAST MEDICAL HISTORY: 1. Hypertension. 2. Paroxysmal atrial fibrillation with a history of catheter ablation in February 2013. MEDICATION LIST: 1. Aspirin 81 mg p.o. daily. 2. Nexium 40 mg p.o. daily. 3. Metoprolol succinate 25 mg p.o. daily. 4. Lisinopril 10 mg p.o. daily. ALLERGIES: To STATINS. FAMILY HISTORY: Heart disease. SOCIAL HISTORY: The patient is retired from [employer]. No history of tobacco use. Consumes 2 to 3 beers a day. Does not drink caffeine. REVIEW OF SYSTEMS: A 14-point review of systems was performed and all the pertinent negative and positive findings are in the HPI. PHYSICAL EXAMINATION GENERAL: The patient is a pleasant gentleman, sitting up in bed, in no acute distress. VITAL SIGNS: Temperature 98, heart rate is 85, respiratory rate is 18, oxygen saturation is 99% on room air, blood pressure is 122/79. CHEST: Breath sounds present bilaterally with no added sounds. CVS: Normal S1, S2. Regular rate and rhythm. ABDOMEN: Soft. Bowel sounds are present. EXTREMITIES: No edema. NEURO: He is alert, oriented x3. Able to move all 4 extremities. DIAGNOSTIC STUDIES/LAB DATA: The patient had a CBC that showed a WBC of 8.5, hemoglobin of 14.8, hematocrit of 43, platelets of 283 with 56% neutrophils. Chemistry showed a sodium of 139, potassium of 3.4, chloride of 105, bicarb of 24, BUN of 15, creatinine of 1.01, glucose of 94, lactic acid is 1, calcium is 9.2, magnesium is 2. LFTs are normal. Troponin is 0.04 and the second one was 0.05. Urinalysis was negative. Chest x-ray is not yet officially read, but to my read it does not show any acute pulmonary disease. EKG done on 03/24/19 at 1940 showed sinus rhythm at 90 beats per minute with T- wave inversions in III, flat T-waves in aVF. No significant change when compared to his prior EKG from August 2018. ASSESSMENT AND PLAN: Mr. Maria is a 63-year-old male with a past medical history of paroxysmal atrial fibrillation and hypertension, who presents to the emergency room after an episode of atrial fibrillation associated with chest pressure, shortness of breath and lightheadedness. 1. Atrial fibrillation with rapid ventricular rate. This has happened in the setting of a weekend of camping with significant physical exertion, poor fluid oral intake with alcohol intake and the patient is not sure if he missed a dose of his metoprolol. In the emergency room, he was found to have potassium of 3.4 and I believe all these factors contributed to this episode. I believe his minimal troponin elevation is secondary to his atrial fibrillation, but we will continue to check troponins until peak. His EKG does not show new ischemic changes and he had a stress test done with Dr. Ross in September 2018, was a normal stress echo with no ischemia. We will replete his electrolytes. The patient already received IV fluids in the emergency room. We will continue his metoprolol and monitor. The last echocardiogram documented was in 2012, so I will check an echocardiogram. He received 1 dose of Lovenox in the emergency room and his CHADS2-VASc is actually 1, so I will not continue anticoagulation at this point, but he is covered until noon today and in the meantime we can contact Cardiology in case he goes back into atrial fibrillation. 2. Hypertension. Blood pressure is controlled. We will continue lisinopril and metoprolol. 3. DVT prophylaxis: The patient has a score of 3 on the DVT Prophylaxis Risk Assessment Guide and he already received 1 dose of therapeutic Lovenox and he is covered until noon. He will have SCDs. 4. Code status is full. TIME SPENT: Approximately 45 minutes was spent with the patient's interview, medical records review, physical examination to complete this admission, more than half of this time was spent [id number] with the patient and coordination of care. [id number]/[facility] #: [id number] CARLOS
--- NOTE | 2019-03-25 16:21 | DS ---
AMENDED REPORT NOW INCLUDES DESIGNATED COSIGNER CC: Dr. Alanis; Dr. Harsha Ross * DISCHARGE SUMMARY: DATE OF ADMISSION: 03/24/19 DATE OF DISCHARGE: 03/25/19 PRIMARY CARE PROVIDER: Dr. Alanis. OTHER PHYSICIANS: Outpatient cardiology associate, Dr. Harsha Ross. ATTENDING PHYSICIAN: Dr. Betzaida Jackson * (dictated by Marco Almonte NP). PRIMARY DIAGNOSIS: Atrial fibrillation. SECONDARY DIAGNOSES: 1. Status post ablation in 2012 for atrial fibrillation. 2. Hyperlipidemia. 3. Hypertension. 4. Gastroesophageal reflux disease. 5. Hiatal hernia. 6. C6-C7 disk herniation. 7. Spinal cord injury, C6-C7. CONSULTATIONS WHILE IN THE HOSPITAL: No consultations. STUDIES WHILE IN THE HOSPITAL: 1. EKG, impression: Sinus rhythm. 2. Chest x-ray, impression: No evidence of active cardiopulmonary disease. 3. Transthoracic echo, impression: Systolic function is normal with EF of approximately 55% to 60%, [id number] mitral regurgitation, trivial tricuspid regurgitation. Unchanged from study of 11/29/12. DISCHARGE HOME MEDICATIONS: New home medications: No new home medications. Continued home medications: 1. Aspirin 81 mg p.o. daily. 2. Nexium 40 mg p.o. daily. 3. Metoprolol 25 mg p.o. daily. 4. Lisinopril 10 mg p.o. daily. HISTORY OF PRESENT ILLNESS/HOSPITAL COURSE: Mr. Maria is a 63-year-old male, who presented to the emergency department on 03/24/19 due to palpitations and suspected atrial fibrillation. The patient has a history of paroxysmal atrial fibrillation and follows with Dr. Ross as an outpatient. The patient had an ablation for same in 2012. The patient reports he was hiking in the [facility] and was not well hydrated and had an episode of atrial fibrillation that caused him to feel weak. He was evaluated by senior operations analyst at [facility] and was noted to be in sinus rhythm. When he returned to [place], given his history, primary care recommended he come to the emergency room. Given the patient's history, he was admitted to telemetry. While on telemetry, he has been in normal sinus rhythm. The patient has had repeat troponins, which have been 0.04 to 0.05. The patient has remained chest pain-free. The patient has not had any reoccurrence of atrial fibrillation. The patient had a repeat echocardiogram, which was unchanged from 2013. The patient reports that he is not on any anticoagulation as his paroxysmal AFib is only intermittent only a couple times a year and he is a very active male; therefore, he and Dr. Ross have made a decision to withhold on anticoagulants at this point. This was verified by Dr. Ross. The patient is stable for discharge home. REVIEW OF SYSTEMS: The patient denies chest pain, palpitations, shortness of breath, diaphoresis, nausea, vomiting. The patient denies recent illness, sore throat, nasal congestion, dizziness. A 14-point review of systems was completed and all were negative. PHYSICAL EXAMINATION: Vital Signs: Temp 97.7, HR 65, RR 20, O2 saturation 96% on room air, BP 126/77. General: Mr. Maria is a 63-year-old male, who is sitting in bed. He appears to be in no acute distress. Appears stated age. HEENT: EOMs intact. PERRLA. Oral mucosa is moist without lesion. Posterior pharynx is clear. Neck: Supple. No lymphadenopathy. Full range of motion. Respiratory: Symmetrical chest expansion. No accessory muscle use. Lungs are clear to auscultation. No rhonchi, wheezes, or rales. CV: Regular rate and rhythm. S1, S2 present. No murmurs, rubs, or gallops. Extremities: Skin is warm and smooth bilaterally. No edema. No clubbing or cyanosis. Musculoskeletal: Full range of motion. No pain or deformities. Abdomen: Soft , nontender to palpation. Bowel sounds normoactive. Neuro: Awake, alert, oriented x4. Motor strength is 5/5 in the upper and lower extremities. Skin: Grossly intact without lesions. LABORATORY DATA: WBC 8.5, hemoglobin 14.8, hematocrit 43, platelets 283. Sodium 139, potassium 3.4, chloride 105, carbon dioxide 24, BUN 15, creatinine 1.01. Creatine kinase 305, CK-MB 7.0, BNP 113. DISCHARGE PLAN/FOLLOWUP: Mr. Maria is a 63-year-old male with a past medical history significant for paroxysmal atrial fibrillation, status post ablation; hyperlipidemia; hypertension, who presented to the emergency room yesterday with complaints of palpitations, which was believed to be secondary to an episode of atrial fibrillation. The patient will be discharged home today. 1. Atrial fibrillation: The patient follows with Dr. Ross and had an appointment on 03/05/19. The patient only has episodes of paroxysmal atrial fibrillation 2 to 3 times a year. The patient shall continue his metoprolol. The patient has had the discussion of risk and benefit of anticoagulation. At this point, the patient will not be on any anticoagulation. The patient should continue his 81 mg aspirin. The patient should follow up with Dr. Ross as needed. 2. Hypokalemia: As mentioned, the patient's potassium was 3.4 on admission and he did receive replacement. I have recommended that the patient follow up with his primary care provider for repeat BMP in 1 week. 3. Hyperlipidemia: The patient has a reported history of hyperlipidemia, but also has listed allergy to STATIN. I would encourage the patient to follow up with his primary care for repeat lipids and possible alternative agents if needed. The patient should also implement lifestyle changes if he has not already. 4. Hypertension: The patient has been normotensive since admission. The patient should continue his home medications of metoprolol and lisinopril as same. 5. GERD and hiatal hernia: The patient should continue his Nexium. 6. Followup: As mentioned above, I have encouraged the patient to follow up with his primary care provider in 1 week for a repeat BMP to assess his potassium level. He states understanding. The patient should follow up with Dr. Ross as they have discussed. 7. Education: The patient was educated on signs and symptoms of new or worsening conditions and when to return to the emergency room. The patient and both stated understanding. This is a summarized report of a complex medical history and hospital stay. For further details, please see entire medical record. TIME SPENT: Approximately 35 minutes was spent on this discharge, greater than half that time was spent [id number] with the patient discussing discharge plans and instructions. Reviewed by MARCO ALMONTE NP 03/25/19 @ 1941 [id number]/[facility] #: [id number] CARLOS
--- NOTE | 2019-03-25 21:37 | CONS ---
CC: Dr. Alanis * CARDIOLOGY CONSULTATION: DATE OF CONSULT: 03/25/19 INDICATION FOR CONSULTATION: Atrial fibrillation. HISTORY OF PRESENT ILLNESS: The patient is well known to me has a history of paroxysmal atrial fibrillation. I had seen the patient in evaluation on and was having very few episodes of atrial fibrillation. The patient was up camping in the [facility] yesterday when he went into atrial fibrillation. He felt lightheaded and dizzy with this. He did not have any chest pain. He denied any shortness of breath. He was able to get all of his camping gear together, was about ready to get into his canoe and paddle back to his car when he converted back to normal sinus rhythm. When he got back to [place] he came to the emergency room. In the emergency room, he was in normal sinus rhythm. His laboratory studies were unremarkable. He had no specific complaints. His peak troponin level was 0.05, which was barely outside the normal range. His other laboratory studies are within normal limits. In speaking with the patient now, he has no complaints. OUTPATIENT MEDICATIONS: 1. Flovent inhaler. 2. Lisinopril 10 mg a day. 3. Metoprolol 25 mg once a day. 4. Nexium 40 mg a day. 5. ProAir inhaler. ALLERGIES: No known drug allergies. PHYSICAL EXAM: Height is 6 feet, weight 214 pounds, temperature 97.7, heart rate is 65, blood pressure 126/77, respiratory rate is 20, carotids are 2+ without bruits. JVD is normal. Thyroid is normal. Cardiac Exam: S1 and S2 without any murmurs, rubs, or gallops. Lungs are clear to auscultation. Extremities show no edema. DIAGNOSTIC STUDIES/LAB DATA: His EKG today demonstrates normal sinus rhythm. IMPRESSION: This is a patient with paroxysmal atrial fibrillation who had an episode of atrial fibrillation while out camping who converted to normal sinus rhythm on his own before he came to the hospital. For now, my recommendation is to discharge him from hospital. He did have an echocardiogram today, which demonstrated normal LV size and systolic function. No significant valvular abnormalities. I will see the patient in followup in 2 to 3 weeks to discuss further options for his atrial fibrillation. The patient has a YARA VASc score of 1, does not need anticoagulation at this time. [id number]/[facility] #: [id number] CARLOS
== END 2019-03-25 14:10 | disposition home or self-care (01) ==
LOC: ED 19:27 → MEDTELE 03-25 01:16
PROVIDERS: ADMIT Internal Medicine; ATTEND Internal Medicine
DX: I48.0 Paroxysmal atrial fibrillation (principal); Z86.79 Personal history of other diseases of the circulatory system; E78.5 Hyperlipidemia, unspecified; E87.6 Hypokalemia; I10 Essential (primary) hypertension; K21.9 Gastro-esophageal reflux disease without esophagitis; K44.9 Diaphragmatic hernia without obstruction or gangrene; M50.223 Other cervical disc displacement at C6-C7 level; Z79.82 Long term (current) use of aspirin; R07.9 Chest pain, unspecified; Z79.01 Long term (current) use of anticoagulants; R06.02 Shortness of breath
CPT/HCPCS: 36415; 71046; 80053; 81003; 82550; 82553; 83605; 83735; 83880; 84443; 84484; 85025; 93005; 93306; 96360; 96361; 96372; 99284; A9270-GY; C8929; G0378; J1650; J3480